=== PATIENT | male | born 1945 | race Hispanic/Latino ===

== ENCOUNTER 2018-10-24 08:32 | Emergency (ER) | payer MEDICARE, MEDICAID ==
[2018-10-24 08:37] VITALS: BMI 31.9
[2018-10-24 08:39] VITALS: BP 154/91; PULSE 88; RESP 20; TEMP 97.6; O2SAT 97
--- NOTE | 2018-10-24 09:24 | ED PDOC ---
HPI: General Adult Time Seen by Provider: 10/24/18 09:02 Chief Complaint (Nursing): ENT Problem Chief Complaint (Provider): foreign body in right ear History Per: Patient History/Exam Limitations: no limitations Onset/Duration Of Symptoms: Days (1x) Current Symptoms Are (Timing): Still Present Additional Complaint(s): 73 year old male presents to the ED for an evaluation of his right ear. Patient reports a plastic piece of the hearing aid is stuck inside his right ear which he noticed yesterday. Otherwise patient denies dizziness, pain or any discharge. PMD: non [facility] provider Past Medical History Reviewed: Historical Data, Nursing Documentation, Vital Signs Vital Signs: Last Vital Signs Temp 97.6 F 10/24/18 08:37 Pulse 88 10/24/18 08:37 Resp 20 10/24/18 08:37 BP 154/91 H 10/24/18 08:37 Pulse Ox 97 10/24/18 08:37 - Medical History PMH: No Chronic Diseases - Surgical History Surgical History: No Surg Hx - Family History Family History: States: Unknown Family Hx - Social History Current smoker - smoking cessation education provided: No Alcohol: None Drugs: Denies - Allergies Allergies/Adverse Reactions: Allergies Allergy/AdvReac Type Severity Reaction Status Date / Time No Known Allergies Allergy Verified 10/24/18 09:19 Review of Systems ROS Statement: Except As Marked, All Systems Reviewed And Found Negative Constitutional: Negative for: Fever ENT: Positive for: Other (Foreign body inside right ear). Negative for: Ear Pain, Ear Discharge Skin: Negative for: Rash Neurological: Negative for: Headache Physical Exam - Reviewed Nursing Documentation Reviewed: Yes Vital Signs Reviewed: Yes - Physical Exam Appears: Positive for: Well, Non-toxic, No Acute Distress Head Exam: Positive for: ATRAUMATIC, NORMAL INSPECTION, NORMOCEPHALIC Skin: Positive for: Normal Color, Warm, Dry. Negative for: Rash Eye Exam: Positive for: EOMI, Normal appearance, PERRL ENT: Positive for: Other (R EAR: + FB ear canal) Neurologic/Psych: Positive for: Alert, asphalt spreader operator II-XII, Oriented (x3) - ECG O2 Sat by Pulse Oximetry: 97 (RA) Pulse Ox Interpretation: Normal Medical Decision Making Medical Decision Making: Time: 901 Initial Plan: PROCEDURE: FOREIGN BODY REMOVAL Performed by the emergency provider, Rachna Jackson MD Timeout: 901 Indication: circular plastic piece of hearing aid was in the patient's right ear canal Procedure: The foreign body was removed using alligator forceps with successful foreign body removal. There was no edema, discharge or erythema. Post-procedure: Patient tolerated the procedure well with no immediate complications. The foreign body was removed. There was no bleeding.Patient tolerated the procedure well with no immediate complications. Scribe Attestation: Documented by Anna Perea, acting as a scribe for Rachna Jackson MD Provider Scribe Attestation: All medical record entries made by the Scribe were at my direction and personally dictated by me. I have reviewed the chart and agree that the record accurately reflects my personal performance of the history, physical exam, medical decision making, and the department course for this patient. I have also personally directed, reviewed, and agree with the discharge instructions and disposition. Procedures - Time-Out Type of Procedure: Foreign Body Removal Site of Procedure: Right Ear Correct Patient (with visual ID + MR# on ID Band): Yes Correct Procedure: Yes Correct Site Marked: Yes Medication Reconciliation / Bloodwork / Allergies Checked: Yes Disposition - Clinical Impression Clinical Impression: Foreign body in ear - Disposition Disposition: Routine/Home Disposition Time: 09:20 Condition: STABLE Additional Instructions: FOLLOW-UP WITH PMD FOR REEVALUATION. Instructions: Removing Objects Stuck in the Ear Forms: [employer] (Serbian)
== END 2018-10-24 09:30 | disposition home or self-care (01) ==
LOC: H.ER 08:32
DX: T16.1XXA Foreign body in right ear, initial encounter (principal)

== ENCOUNTER 2018-11-21 09:23 | Observation (INO) | payer MEDICARE, MEDICAID ==
--- NOTE | 2018-11-21 09:55 | ED PDOC ---
HPI: Chest Pain Additional Complaint(s): This is 73 y/o male with PMH of A.fib, HTN, HLD, NE and stroke comes to the ER c/o one day hx of sub-sternal chest pain and dizziness. Patient reports chest pain started at 3am, non-radiating, dull pain, seems like something stuck inside, 5/10, comes and goes, last for 2 mins, no aggravating or alleviating factors. Associated with dizziness this morning where he felt like room is spinning and blurred vision, denies any nausea, vomiting or fall. Patient currently denies any chest pain or dizziness at this time. Denies SOB, abdominal pain or weakness. PMH:A.fib, HTN, HLD, NE and stroke PSH: Denies Allg: NKDA FH: Denies NE/Stroke SH: Social alcohol use, former heavy smoker/ Quit 10 years ago and denies any drug use Meds: Warfarin, Coreg, Crestor, Flomax ROS: As per HPI <Hill Grimes - Last Filed: 11/21/18 11:31> <Mike Sanchez - Last Filed: 11/21/18 14:02> Time Seen by Provider: 11/21/18 09:38 Supervising Attending Note - Supervising Attending Note The Documented history was done by the: Physician Dining Service Supervisor The documented physical exam was done by the: Physician Dining Service Supervisor The documented procedures were done by the: Physician Dining Service Supervisor - Attestation: I have personally seen and examined this patient.: Yes I have fully participated in the care of the patient.: Yes I have reviewed all pertinent clinical information: Yes - Notes: Notes:: Pt. with chest pain and dizziness. <Mike Sanchez - Last Filed: 11/21/18 14:02> Past Medical History Vital Signs: Last Vital Signs Temp 98.2 F 11/21/18 09:26 Pulse 66 11/21/18 09:26 Resp 18 11/21/18 09:26 BP 164/78 H 11/21/18 09:26 Pulse Ox 97 11/21/18 09:26 - Family History Family History: States: Unknown Family Hx <Hill Grimes - Last Filed: 11/21/18 11:31> Vital Signs: Last Vital Signs Temp 98.2 F 11/21/18 09:26 Pulse 58 L 11/21/18 13:24 Resp 18 11/21/18 13:24 BP 151/79 H 11/21/18 13:24 Pulse Ox 96 11/21/18 13:24 <Mike Sanchez - Last Filed: 11/21/18 14:02> - Home Medications Home Medications: Ambulatory Orders Medication Instructions Recorded Albuterol Sulfate [Proair Hfa] 2 puff IH Q4 PRN 11/21/18 Carvedilol [Coreg] 6.25 mg PO Q12 11/21/18 Fluticasone/Salmeterol [Advair 1 puff IH Q12 11/21/18 250-50 Diskus] Levothyroxine [Synthroid] 50 mcg PO DAILY 11/21/18 Rosuvastatin Calcium [Crestor] 10 mg PO HS 11/21/18 Tamsulosin [Flomax] 0.4 mg PO HS 11/21/18 Warfarin [Coumadin] 7.5 mg PO QPM 11/21/18 - Allergies Allergies/Adverse Reactions: Allergies Allergy/AdvReac Type Severity Reaction Status Date / Time No Known Allergies Allergy Verified 10/24/18 09:19 Curb-65 Severity Score - CURB-65 Severity Score Confusion: No Curb-65 Score: 0 Percentage 30-day mortality: 0.6% <Hill Grimes - Last Filed: 11/21/18 11:31> Wells Criteria for PE - Wells Criteria for Pulmonary Embolism Clinical Signs and Symptoms of DVT: No P.E is #1 Diagnosis, or Equally Likely: No Total Score: 0 <Hill Grimes - Last Filed: 11/21/18 11:31> Review of Systems Constitutional: Negative for: Fever, Chills Eyes: Negative for: Pain, Vision Change ENT: Negative for: Ear Pain, Ear Discharge Cardiovascular: Positive for: Chest Pain, Light Headedness. Negative for: Pa lpitations Respiratory: Negative for: Cough, Shortness of Breath Gastrointestinal: Negative for: Nausea, Vomiting, Abdominal Pain Genitourinary Male: Negative for: Dysuria Musculoskeletal: Negative for: Neck Pain Skin: Negative for: Rash Neurological: Negative for: Weakness, Numbness, Incoordination Psych: Negative for: Anxiety <Hill Grimes - Last Filed: 11/21/18 11:31> Physical Exam - Physical Exam Appears: Positive for: Well, No Acute Distress Head Exam: Positive for: NORMAL INSPECTION Skin: Positive for: Normal Color. Negative for: Diaphoresis Eye Exam: Positive for: Normal appearance ENT: Positive for: Normal ENT Inspection Neck: Positive for: Normal Cardiovascular/Chest: Positive for: Irregularly Irregular Respiratory: Positive for: Normal Breath Sounds. Negative for: Decreased Breath Sounds, Accessory Muscle Use, Crackles, Wheezing Gastrointestinal/Abdominal: Positive for: Normal Exam, Soft. Negative for: Tenderness Back: Positive for: Normal Inspection. Negative for: L CVA Tenderness, R CVA Tenderness Extremity: Positive for: Normal ROM Neurologic/Psych: Positive for: Alert, rn telephone triage II-XII, Oriented, Gait (normal). Negative for: Motor/Sensory Deficits <Hill Grimes - Last Filed: 11/21/18 11:31> - Physical Exam Cardiovascular/Chest: Positive for: Irregularly Irregular Respiratory: Positive for: Normal Breath Sounds Gastrointestinal/Abdominal: Negative for: Tenderness <Mike Sanchez - Last Filed: 11/21/18 14:02> - ECG O2 Sat by Pulse Oximetry: 97 - Progress ED Course And Treament: A/P: 73 y/o male with PMH of A.fib, HTN, HLD, NE and stroke comes to the ER c/o one day hx of sub-sternal chest pain and dizziness. - CBC, CMP, Trop, COag - EKG, CXR, 1L NS - Morphine - Head CT w/o Cont - Reexamination Case discussed with Dr. Sanchez <Hill Grimes - Last Filed: 11/21/18 11:31> - Laboratory Results Result Diagrams: 11/21/18 11:20 11/21/18 11:20 Lab Results: Troponin I < 0.0120 ng/mL (0.00-0.120) 11/21/18 11:20 Total Bilirubin 0.5 mg/dl (0.2-1.3) 11/21/18 11:20 AST 31 U/L (17-59) 11/21/18 11:20 ALT 23 U/L (21-72) 11/21/18 11:20 Alkaline Phosphatase 63 U/L (38-126) 11/21/18 11:20 Total Protein 7.6 G/DL (6.3-8.2) 11/21/18 11:20 Albumin 4.1 g/dL (3.5-5.0) 11/21/18 11:20 Globulin 3.4 gm/dL (2.2-3.9) 11/21/18 11:20 Albumin/Globulin Ratio 1.2 (1.0-2.1) 11/21/18 11:20 - ECG Pulse Ox Interpretation: Normal - Progress ED Course And Treament: 1359: Stable. AAOx3. Pain free. Spoke with Dr. Lazcano who will admit. No asa as pt. is on coumadin. <Mike Sanchez - Last Filed: 11/21/18 14:02> Disposition <Hill Grimes - Last Filed: 11/21/18 11:31> - Patient ED Disposition Is Patient to be Admitted: No Counseled Patient/Family Regarding: Studies Performed, Diagnosis - Disposition Disposition Time: 14:00 - Pt Status Changed To: Hospital Disposition Of: Observation - POA Present On Arrival: None <Mike Sanchez - Last Filed: 11/21/18 14:02> - Clinical Impression Clinical Impression: Chest pain - Disposition Condition: FAIR
[2018-11-21] MEDS ORDERED: Sodium Chloride 0.9% 500 ML IV STA (10:05)
[2018-11-21 11:45] LABS: BASO % 0.8 % (0.0-2.0); EOS # 0.1 K/uL (0.0-0.7); EOS % 2.2 % (0.0-4.0); HEMOGLOBIN 13.1 g/dL (12.0-18.0); LYMPH # 1.2 K/uL (1.0-4.3); LYMPH % 19.3 % (20.0-40.0); MEAN CELL VOLUME 88.4 fl (80.0-94.0); MEAN CORPUSCULAR HGB CONC 32.8 g/dL (33.0-37.0); MEAN PLATELET VOLUME 8.9 fl (7.2-11.7); MONO # 0.6 K/uL (0.0-0.8); MONO % 9.7 % (0.0-10.0); NEUT # 4.1 K/uL (1.8-7.0); RBC 4.52 Mil/uL (4.40-5.90); RED CELL DISTRIBUTION WIDTH 14.7 % (11.5-14.5); WHITE BLOOD COUNT 6.1 K/uL (4.8-10.8)
--- NOTE | 2018-11-21 11:48 | CT ---
Date of service: 11/21/2018 PROCEDURE: CT HEAD WITHOUT CONTRAST. HISTORY: headache COMPARISON: None available. TECHNIQUE: Axial computed tomography images were obtained through the head/brain without intravenous contrast. Radiation dose: Total exam DLP = 797.9 mGy-cm. This CT exam was performed using one or more of the following dose reduction techniques: Automated exposure control, adjustment of the mA and/or kV according to patient size, and/or use of iterative reconstruction technique. FINDINGS: HEMORRHAGE: No intracranial hemorrhage. BRAIN: No mass. Focal encephalomalacia anterior right temporal lobe. Nonspecific. Possible old infarct. No evidence of acute infarct. Remote ischemic change anterior limb right internal capsule. VENTRICLES: Dilatation frontal horn right lateral ventricle likely secondary to volume loss in the anterior right temporal lobe. There is also mild dilatation of the temporal horn of the right lateral ventricle. No midline shift. No generalized ventriculomegaly. CALVARIUM: Unremarkable. PARANASAL SINUSES: Unremarkable as visualized. No significant inflammatory changes. MASTOID AIR CELLS: Unremarkable as visualized. No inflammatory changes. OTHER FINDINGS: None. IMPRESSION: Nonspecific remote encephalomalacia anterior right temporal lobe. Mild dilatation of frontal horn and temporal horn right lateral ventricle. Remote ischemic change anterior limb right internal capsule. No intracranial mass, hemorrhage or evidence of acute infarct.
[2018-11-21 11:53] LABS: ALB/GLOB RATIO 1.2 (1.0-2.1); ALBUMIN 4.1 g/dL (3.5-5.0); ALT/SGPT 23 U/L (21-72); AST/SGOT 31 U/L (17-59); BLOOD UREA NITROGEN 18 mg/dl (9-20); CALCIUM 9.4 mg/dL (8.4-10.2); GFR NON-AFRICAN AMERICAN > 60
--- NOTE | 2018-11-21 11:53 | RAD ---
Date of service: 11/21/2018 HISTORY: dyspnea COMPARISON: No prior. FINDINGS: LUNGS: No active pulmonary disease. PLEURA: No significant pleural effusion identified, no pneumothorax apparent. CARDIOVASCULAR: No aortic atherosclerotic calcification present. Normal cardiac size. No pulmonary vascular congestion. OSSEOUS STRUCTURES: No significant abnormalities. VISUALIZED UPPER ABDOMEN: Normal. OTHER FINDINGS: None. IMPRESSION: No active disease.
[2018-11-21 15:39] LABS: INR 2.7; PROTHROMBIN TIME 30.8 Seconds (9.8-13.1)
[2018-11-21 15:42] LABS: PARTIAL THROMBOPLASTIN TIME 50.9 Seconds (25.6-37.1)
[2018-11-21 17:05] VITALS: BMI 39.8
--- NOTE | 2018-11-21 18:01 | CP.PCM.HP ---
History of Present Illness - History of Present Illness History of Present Illness: 73 yo admitted for chest pain Past Patient History - Infectious Disease Hx of Infectious Diseases: None - Past Medical History & Family History Past Medical History?: Yes - Past Social History Smoking Status: Heavy Smoker > 10 Cigarettes Daily - CARDIAC Hx Cardiac Disorders: Yes Hx Atrial Fibrillation: Yes Hx Heart Attack: Yes (x1) Hx Hypertension: Yes Other/Comment: hyperlipidemia - PULMONARY Hx Respiratory Disorders: No - NEUROLOGICAL Hx Neurological Disorder: No - HEENT Hx HEENT Problems: Yes Other/Comment: Hard of hearing, w/ bilateral hearing aid - RENAL Hx Chronic Kidney Disease: No - ENDOCRINE/METABOLIC Hx Endocrine Disorders: No - HEMATOLOGICAL/ONCOLOGICAL Hx Blood Disorders: No Hx AIDS: No Hx Human Immunodeficiency Virus (HIV): No - INTEGUMENTARY Hx Dermatological Problems: No - MUSCULOSKELETAL/RHEUMATOLOGICAL Hx Musculoskeletal Disorders: No Hx Falls: No - GASTROINTESTINAL Hx Gastrointestinal Disorders: Yes Other/Comment: Abdominal surgery - GENITOURINARY/GYNECOLOGICAL Hx Genitourinary Disorders: Yes Hx Prostate Problems: Yes - PSYCHIATRIC Hx Substance Use: No - SURGICAL HISTORY Hx Surgeries: No - ANESTHESIA Hx Anesthesia: No Hx Anesthesia Reactions: No Hx Malignant Hyperthermia: No Meds Allergies/Adverse Reactions: Allergies Allergy/AdvReac Type Severity Reaction Status Date / Time No Known Allergies Allergy Verified 10/24/18 09:19 Physical Exam - Respiratory Exam Respiratory Exam: NORMAL BREATHING PATTERN - Cardiovascular Exam Cardiovascular Exam: REGULAR RHYTHM - GI/Abdominal Exam GI & Abdominal Exam: Normal Bowel Sounds Results - Vital Signs Recent Vital Signs: Last Vital Signs Temp 97.7 F 11/21/18 17:00 Pulse 71 11/21/18 17:00 Resp 16 11/21/18 17:00 BP 158/81 H 11/21/18 17:00 Pulse Ox 95 11/21/18 17:00 - Labs Result Diagrams: 11/21/18 11:20 11/21/18 11:20 Labs: Laboratory Results - last 24 hr 11/21/18 11/21/18 11/21/18 11:20 11:20 15:30 WBC 6.1 RBC 4.52 Hgb 13.1 Hct 40.0 MCV 88.4 MCH 29.0 MCHC 32.8 L RDW 14.7 H Plt Count 185 MPV 8.9 Neut % (Auto) 68.0 Lymph % (Auto) 19.3 L Bond % (Auto) 9.7 Eos % (Auto) 2.2 Baso % (Auto) 0.8 Neut # (Auto) 4.1 Lymph # (Auto) 1.2 Bond # (Auto) 0.6 Eos # (Auto) 0.1 Baso # (Auto) 0.0 PT 30.8 H INR 2.7 APTT 50.9 H Sodium 141 Potassium 4.3 Chloride 105 Carbon Dioxide 31 H Anion Gap 9 L BUN 18 Creatinine 0.9 Est GFR ( Amer) > 60 Est GFR (Non-Af Amer) > 60 Random Glucose 94 Calcium 9.4 Total Bilirubin 0.5 AST 31 ALT 23 Alkaline Phosphatase 63 Troponin I < 0.0120 Total Protein 7.6 Albumin 4.1 Globulin 3.4 Albumin/Globulin Ratio 1.2 Assessment & Plan - Assessment and Plan (Free Text) Assessment: Chest pain Hx Smoker HTN Hyperlipidemia CVA Admit to telemetry Cardiology Hx Afib Coumadin - Date & Time Date: 11/21/18 Time: 22:22
--- NOTE | 2018-11-21 18:21 | CP.PCM.PCO ---
Assessment/Plan - Assessment and Plan (Free Text) Assessment: Cardiology, Dr. Andres was consulted from ER, recommendations appreciated: C/w cardiac monitoring, r/o ACS, no additional treatment for now, f/u further recommendations from Cardiology. Case discussed with Dr. Lazcano. Case discussed with Dr. Sanchez
--- NOTE | 2018-11-21 20:35 | CARD ---
APPROVED REPORT Date of service: 11/21/2018 EKG Measurement Heart [id number] <Conclusion> Atrial fibrillation with premature ventricular or aberrantly conducted complexes Nonspecific T wave abnormality Abnormal ECG
[2018-11-21] MEDS ORDERED: Fluticasone-Salmeterol 250-50mcg Diskus IH PRN (20:42)
--- NOTE | 2018-11-21 20:57 | CP.PCM.CON ---
History of Present Illness - History of Present Illness History of Present Illness: THE PATIENT IS A 73 YEAR OLD MALE WITH A HISTORY OF CAD, ATRIAL FIBRILLATION, HYPERLIPIDEMIA AND HYPOTHYROIDISM. HE STATES THAT HE HAD AN NM ABOUT 10 YEARS AGO AND GETS A YEARLY STRESS TEST AND HE HAD A NUCLEAR STRESS TEST ABOUT 6 MON THS AGO AND BELIEVES THAT IT WAS GOOD. HE NOW STATES THAT TODAY AT ABOUT 2 AM HE HAD A VAGUE MID-STERNAL CHEST DISCOMFORT THAT HE DESCRIBES A SCRATCH-LIKE FEEL THAT LASTED ABOUT 2-3 MINUTES. HE TOOK A 6.25 MGS CARVEDILOL TABLET AND THE PAIN DIDN'T RETURN DURING THE NIGHT. AT ABOUT 7AM THE PAIN RETURNED FOR ABOUT 30 SECONDS AND WENT AWAY AND HE TOOK ANOTHER CARVEDILOL TABLET. HE THEN SAT DOWN AND HAD SOME WATER AND HE FELT LIKE THE ROOM WAS SPINNING AROUND HIS HEAD AND THEN DECIDED TO GO TO THE ER AND HE WAS ADMITTED. I WAS ASKED TO SEE HIM. HE NEVER HAD ANY FURTHER CHEST PAIN. HE DENIES ANY CHEST PAIN RADIATION, NAUSEA, VOMITING OR DIAPHORESIS. Past Patient History - Infectious Disease Hx of Infectious Diseases: None - Past Medical History & Family History Past Medical History?: Yes - Past Social History Smoking Status: Heavy Smoker > 10 Cigarettes Daily - CARDIAC Hx Cardiac Disorders: Yes Hx Atrial Fibrillation: Yes Hx Heart Attack: Yes (x1) Hx Hypertension: Yes Other/Comment: hyperlipidemia - PULMONARY Hx Respiratory Disorders: No - NEUROLOGICAL Hx Neurological Disorder: No - HEENT Hx HEENT Problems: Yes Other/Comment: Hard of hearing, w/ bilateral hearing aid - RENAL Hx Chronic Kidney Disease: No - ENDOCRINE/METABOLIC Hx Endocrine Disorders: No - HEMATOLOGICAL/ONCOLOGICAL Hx Blood Disorders: No Hx AIDS: No Hx Human Immunodeficiency Virus (HIV): No - INTEGUMENTARY Hx Dermatological Problems: No - MUSCULOSKELETAL/RHEUMATOLOGICAL Hx Musculoskeletal Disorders: No Hx Falls: No - GASTROINTESTINAL Hx Gastrointestinal Disorders: Yes Other/Comment: Abdominal surgery - GENITOURINARY/GYNECOLOGICAL Hx Genitourinary Disorders: Yes Hx Prostate Problems: Yes - PSYCHIATRIC Hx Substance Use: No - SURGICAL HISTORY Hx Surgeries: No - ANESTHESIA Hx Anesthesia: No Hx Anesthesia Reactions: No Hx Malignant Hyperthermia: No Meds Allergies/Adverse Reactions: Allergies Allergy/AdvReac Type Severity Reaction Status Date / Time No Known Allergies Allergy Verified 10/24/18 09:19 - Medications Medications: Current Medications Aspirin (Ecotrin) 81 mg PO DAILY [facility] Atorvastatin Calcium (Lipitor) 20 mg PO DAILY [facility] Carvedilol (Coreg) 6.25 mg PO Q12 [facility] Levothyroxine Sodium (Synthroid) 50 mcg PO DAILY@0630 [facility] Nitroglycerin (Nitro-Bid 2% Oint) 0.5 ea TOP Q6 [facility] Fluticasone/Salmeterol (Advair Diskus 250/50) 1 puff IH Q12 PRN PRN Reason: Shortness of Breath Warfarin Sodium (Coumadin) 7.5 mg PO QD5 [facility]; Protocol Stop: 11/21/18 21:01 Physical Exam - Respiratory Exam Respiratory Exam: Clear to Auscultation Bilateral - Cardiovascular Exam Cardiovascular Exam: Irregular Rhythm, +S1, +S2 - Extremities Exam Additional comments: NO EDEMA - Additional Findings Additional findings: EKG ATRIAL FIBRILLATION, NO ACUTE CHANGES TROPONIN #1 IS NORMAL K+ 4.3 INR 2.[address] NO ACUTE CHANGES Results - Vital Signs Recent Vital Signs: Last Vital Signs Temp 98 F 11/21/18 19:52 Pulse 63 11/21/18 19:52 Resp 16 11/21/18 19:52 BP 127/70 11/21/18 19:52 Pulse Ox 97 11/21/18 19:52 - Labs Result Diagrams: 11/21/18 11:20 11/21/18 11:20 Labs: Laboratory Results - last 24 hr 11/21/18 11/21/18 11/21/18 11:20 11:20 15:30 WBC 6.1 RBC 4.52 Hgb 13.1 Hct 40.0 MCV 88.4 MCH 29.0 MCHC 32.8 L RDW 14.7 H Plt Count 185 MPV 8.9 Neut % (Auto) 68.0 Lymph % (Auto) 19.3 L Victoria % (Auto) 9.7 Eos % (Auto) 2.2 Baso % (Auto) 0.8 Neut # (Auto) 4.1 Lymph # (Auto) 1.2 Victoria # (Auto) 0.6 Eos # (Auto) 0.1 Baso # (Auto) 0.0 PT 30.8 H INR 2.7 APTT 50.9 H Sodium 141 Potassium 4.3 Chloride 105 Carbon Dioxide 31 H Anion Gap 9 L BUN 18 Creatinine 0.9 Est GFR ( Amer) > 60 Est GFR (Non-Af Amer) > 60 Random Glucose 94 Calcium 9.4 Total Bilirubin 0.5 AST 31 ALT 23 Alkaline Phosphatase 63 Troponin I < 0.0120 Total Protein 7.6 Albumin 4.1 Globulin 3.4 Albumin/Globulin Ratio 1.2 Assessment & Plan - Assessment and Plan (Free Text) Assessment: CAD WITH HISTORY OF NM ~ 10 YEARS AGO. NOW WITH VAGUE CHEST DISCOMFORT. FIRST EKG DOES NOT SHOW ANY ACUTE CHANGES AND FIRST TROPONIN IS NORMAL CHRONIC ATRIAL FIBRILLATION HYPERLIPIDEMIA HYPOTHYROIDISM Plan: THE PATIENT WAS ADMITTED TO ON TELEMETRY O2, ASPIRIN, WARFARIN, CARVEDILOL, ATORVASTATIN, NITRATES SERIAL EKGS AND CE ECHOCARDIOGRAM
[2018-11-21] MEDS: Nitroglycerin 2% Ointment Foilpak UD TOP SCH (21:49)
[2018-11-22 01:52] VITALS: RESP 18
[2018-11-22] MEDS: Nitroglycerin 2% Ointment Foilpak UD TOP SCH ×2 (04:05→09:02)
[2018-11-22] MEDS ORDERED: Levothyroxine 50 MCG TAB PO SCH (06:30)
--- NOTE | 2018-11-22 07:47 | CP.PCM.PN ---
Subjective - Date & Time of Evaluation Date of Evaluation: 11/22/18 Time of Evaluation: 22:22 - Subjective Subjective: Cardiology note appreciated Objective - Vital Signs/Intake and Output Vital Signs (last 24 hours): Temp Pulse Resp BP Pulse Ox 97.9 F 58 L 18 154/79 H 96 11/22/18 07:40 11/22/18 07:40 11/22/18 07:40 11/22/18 07:40 11/22/18 07:40 - Medications Medications: Current Medications Aspirin (Ecotrin) 81 mg PO DAILY [facility] Atorvastatin Calcium (Lipitor) 20 mg PO DAILY [facility] Carvedilol (Coreg) 6.25 mg PO Q12 [facility] Last Admin: 11/21/18 21:44 Dose: 6.25 mg Levothyroxine Sodium (Synthroid) 50 mcg PO DAILY@0630 [facility] Last Admin: 11/22/18 06:09 Dose: 50 mcg Nitroglycerin (Nitro-Bid 2% Oint) 0.5 ea TOP Q6 [facility] Last Admin: 11/22/18 04:05 Dose: Not Given Fluticasone/Salmeterol (Advair Diskus 250/50) 1 puff IH Q12 PRN PRN Reason: Shortness of Breath - Labs Labs: 11/21/18 11:20 11/21/18 11:20 PT 30.8 Seconds (9.8-13.1) H 11/21/18 15:30 INR 2.7 11/21/18 15:30 APTT 50.9 Seconds (25.6-37.1) H 11/21/18 15:30 - Respiratory Exam Respiratory Exam: NORMAL BREATHING PATTERN - Cardiovascular Exam Cardiovascular Exam: REGULAR RHYTHM - GI/Abdominal Exam GI & Abdominal Exam: Normal Bowel Sounds Assessment and Plan - Assessment and Plan (Free Text) Assessment: Chest pain Hx CAD Smoker HTN HLD CVA Admit to telemetry Cardiology Hx Afib Coumadin INR 2.7
[2018-11-22 11:49] VITALS: BP 131/64; PULSE 62; TEMP 98.1; O2SAT 97
--- NOTE | 2018-11-22 12:34 | CP.PCM.PN ---
Subjective - Date & Time of Evaluation Date of Evaluation: 11/22/18 Time of Evaluation: 12:00 - Subjective Subjective: NO CHEST PAIN OR SOB Objective - Vital Signs/Intake and Output Vital Signs (last 24 hours): Temp Pulse Resp BP Pulse Ox 98.1 F 62 18 131/64 97 11/22/18 11:48 11/22/18 11:48 11/22/18 11:48 11/22/18 11:48 11/22/18 11:48 - Medications Medications: Current Medications Aspirin (Ecotrin) 81 mg PO DAILY [facility] Last Admin: 11/22/18 08:23 Dose: 81 mg Atorvastatin Calcium (Lipitor) 20 mg PO DAILY [facility] Last Admin: 11/22/18 08:23 Dose: 20 mg Carvedilol (Coreg) 6.25 mg PO Q12 [facility] Last Admin: 11/22/18 08:22 Dose: 6.25 mg Levothyroxine Sodium (Synthroid) 50 mcg PO DAILY@0630 [facility] Last Admin: 11/22/18 06:09 Dose: 50 mcg Nitroglycerin (Nitro-Bid 2% Oint) 0.5 ea TOP Q6 [facility] Last Admin: 11/22/18 09:02 Dose: 0.5 ea Fluticasone/Salmeterol (Advair Diskus 250/50) 1 puff IH Q12 PRN PRN Reason: Shortness of Breath - Labs Labs: 11/21/18 11:20 11/21/18 11:20 PT 30.8 Seconds (9.8-13.1) H 11/21/18 15:30 INR 2.7 11/21/18 15:30 APTT 50.9 Seconds (25.6-37.1) H 11/21/18 15:30 - Respiratory Exam Respiratory Exam: Clear to Ausculation Bilateral - Cardiovascular Exam Cardiovascular Exam: Irregular Rhythm, +S1, +S2 - Extremities Exam Additional comments: NO LE EDEMA - Additional Findings Additional findings: EKG ATRIAL FIBRILLATION, NO ACUTE CHANGES TROPONINS CHOL 139 ECHO SHOWS GOOD LV SYSTOLIC FUNCTION, NO THROMBI Assessment and Plan - Assessment and Plan (Free Text) Assessment: CAD WITH HISTORY OF OLD IN-NO CHEST PAIN TODAY AND EKG AND TROPONINS ARE NEGATIVE FOR ACUTE IN CHRONIC ATRIAL FIBRILLATION HYPERLIPIDEMIA Plan: OK TI DISCHARGE PATIENT FROM [facility] PATIENT CAN GO HOME ON ALL OF HIS HOME MEDS AND ALSO TO ADD ASPIRIN 81 MGS DAILY NOTE: THE PATIENT RECENTLY MOVED TO [place] FROM [facility] AND STATED THAT HE NEEDS A NEW LOCAL ACTIVITIES COUNSELOR AND ASKED ME IF HE COULD FOLLOW WITH ME. I AGREED AND ASKED HIM TO SEE ME IN MY OFFICE NEXT SATURDAY
--- NOTE | 2018-11-22 13:33 | CARD ---
APPROVED REPORT Date of service: 11/22/2018 EXAM: Two-dimensional and M-mode echocardiogram with Doppler and color Doppler. Other Information Quality : GoodRhythm : NSR INDICATION Cardiac Disease: CAD 2D DIMENSIONS IVSd1.27 (0.7-1.1cm)LVDd4.77 (3.9-5.9cm) LVOT Diameter2.02 (1.8-2.4cm)PWd0.97 (0.7-1.1cm) IVSs1.37 (0.8-1.2cm)LVDs2.92 (2.5-4.0cm) FS (%) 38.8 %PWs1.77 (0.8-1.2cm) M-Mode DIMENSIONS Left Atrium (MM)5.50 (2.5-4.0cm)IVSd1.13 (0.7-1.1cm) Aortic Root3.44 (2.2-3.7cm)LVDd5.00 (4.0-5.6cm) Aortic Cusp Exc.1.88 (1.5-2.0cm)PWd1.13 (0.7-1.1cm) IVSs1.41 cmFS (%) 29 % LVDs3.56 (2.0-3.8cm)PWs1.38 cm Aortic Valve AoV Peak Jekymhkx168.9cm/sAoV VTI36.2cmAO Peak GR.14mmHg LVOT Peak Gnmogxry12.0cm/sLVOT VTI17.85cmAO Mean GR.7mmHg HEATH (VMAX)0.11at0OSU (VTI)0.77cm2 Mitral Valve MV E Twdpripn178.4cm/sMV DECEL [id number] A Bouzfhoc02.9cm/s MV LTQ85faO/A ratio2.4MVA (PHT)3.44cm2 TDI Lateral E' Peak V14.99cm/sMedial E' Peak V11.16cm/sE/Lateral E'7.5 E/Medial E'10.1 Tricuspid Valve TR Peak Vsvydpqb091gq/sRAP [id number] Peak Gr.31mmHg [id number] LEFT VENTRICLE The left ventricle is normal size. There is normal left ventricular wall thickness. The left ventricular systolic function is normal. The estimated ejection fraction is 55-60% No regional wall motion abnormalities noted.. The left ventricular diastolic function cannot be assessed due to underlying atrial fibrillation. No left ventricle thrombus noted on this study. There is no ventricular septal defect visualized. There is no left ventricular aneurysm. There is no mass noted in the left ventricle. RIGHT VENTRICLE The right ventricle is normal size. There is normal right ventricular wall thickness. The right ventricular systolic function is normal. ATRIA The left atrium is moderately dilated. The right atrium is mildly dilated. The interatrial septum is intact with no evidence for an atrial septal defect. AORTIC VALVE The aortic valve is normal in structure. Mild aortic regurgitation is present. There is no aortic valvular stenosis. There is no aortic valvular vegetation. MITRAL VALVE The mitral valve is normal in structure. There is no evidence of mitral valve prolapse. There is no mitral valve stenosis. There is mild mitral valve regurgitation noted. TRICUSPID VALVE The tricuspid valve is normal in structure. There is mild tricuspid valve regurgitation noted. RVSP is calculated at 41 mm Hg. There is no tricuspid valve prolapse or vegetation. There is no tricuspid valve stenosis. PULMONIC VALVE The pulmonary valve is normal in structure. There is no pulmonic valvular regurgitation. There is no pulmonic valvular stenosis. GREAT VESSELS The aortic root is normal in size. The ascending aorta is normal in size. The pulmonary artery is normal. The IVC is not visualized. PERICARDIAL EFFUSION There is no pericardial effusion. There is no pleural effusion. <Conclusion> The estimated ejection fraction is 55-60% The left ventricular diastolic function cannot be assessed due to underlying atrial fibrillation. The left atrium is moderately dilated. Mild aortic regurgitation is present. There is mild mitral valve regurgitation noted. There is mild tricuspid valve regurgitation noted. RVSP is calculated at 41 mm Hg. The IVC is not visualized.
--- NOTE | 2018-11-24 09:33 | CARD ---
APPROVED REPORT Date of service: 11/22/2018 EKG Measurement Heart [id number] <Conclusion> Atrial fibrillation with a competing junctional pacemaker Poor R wave progression in Precordial leads Abnormal ECG
== END 2018-11-22 13:42 | disposition home or self-care (01) ==
LOC: H.ER 09:23 → H.ERHOLD 13:55 → H.TEL 15:38
PROVIDERS: ADMIT Family Medicine Geriatric Medicine; ATTEND Family Medicine Geriatric Medicine
DX: R07.89 Other chest pain (principal); E03.9 Hypothyroidism, unspecified; E78.5 Hyperlipidemia, unspecified; H91.90 Unspecified hearing loss, unspecified ear; I10 Essential (primary) hypertension; I25.10 Atherosclerotic heart disease of native coronary artery without angina pectoris; I25.2 Old myocardial infarction; I48.2 Chronic atrial fibrillation; Z79.01 Long term (current) use of anticoagulants; Z79.890 Hormone replacement therapy; Z86.73 Personal history of transient ischemic attack (TIA), and cerebral infarction without residual deficits; Z87.891 Personal history of nicotine dependence
CPT/HCPCS: 36415; 70450; 71045; 80053; 80061; 84443; 84484; 85025; 85610; 85730; 93005; 93306; 99283; G0378; J7040